=== PATIENT | female | born 1965 | race Asian ===

== ENCOUNTER 2022-11-16 15:52 | Emergency (ER) | payer OTHER, SELFPAY ==
[2022-11-16] MEDS ORDERED: Ketorolac Tromethamine 30 MG/ML VIAL ONE (19:18)
== END 2022-11-16 20:24 | disposition home or self-care (01) ==
LOC: CSHERS 15:52
DX: S39.012A Strain of muscle, fascia and tendon of lower back, initial encounter (principal); S80.02XA Contusion of left knee, initial encounter; I10 Essential (primary) hypertension; V29.408A Other motorcycle driver injured in collision with unspecified motor vehicles in traffic accident, initial encounter
CPT/HCPCS: 72100; 96372; J1885